=== PATIENT | female | born 1965 | race Caucasian/White ===

== ENCOUNTER 2018-11-30 08:34 | Emergency (ER) | payer OTHER ==
[2018-11-30 10:09] LABS: ADD UMIC YES; UR ASCORBIC ACID NEGATIVE (NEGATIVE); UR BILIRUBIN (Dip) NEGATIVE (NEGATIVE); UR BLOOD (Dip) NEGATIVE (NEGATIVE); UR CLARITY CLEAR (CLEAR); UR COLOR YELLOW (YELLOW); UR GLUCOSE (Dip) NEGATIVE (NEGATIVE); UR KETONES (Dip) NEGATIVE (NEGATIVE); UR LEUKOCYTE ESTERASE (Dip) 1+ Leu/ul (NEGATIVE); UR NITRITE (Dip) NEGATIVE (NEGATIVE); UR RBC 0 /HPF (0-5); UR SPECIFIC GRAVITY (Dip) 1.014 (1.003-1.030); UR TOTAL PROTEIN (Dip) NEGATIVE (NEGATIVE); UR UROBILINOGEN (Dip) NEGATIVE (NEGATIVE); UR WBC 0 /HPF (0-5)
[2018-11-30] MEDS: CYCLOBENZAPRINE 10 MG TAB PO (10:09)
[2018-11-30] MEDS: KETOROLAC 60 MG INJ IM (10:09)
== END 2018-11-30 15:37 | disposition home or self-care (01) ==
LOC: FTE 08:34
DX: K57.30 Diverticulosis of large intestine without perforation or abscess without bleeding (principal); R82.998 Other abnormal findings in urine; E03.9 Hypothyroidism, unspecified
CPT/HCPCS: 74176; 76830; 76856; 81001; 81025; 87086; 96372; 99285-25